=== PATIENT | female | born 1985 | race Caucasian/White ===

== ENCOUNTER 2020-06-30 00:46 | Emergency (ER) | payer BC, SELFPAY ==
[2020-06-30 00:50] VITALS: BP 135/73; PULSE 144; RESP 16; TEMP 37.3; O2SAT 100
[2020-06-30 01:22] LABS: Add Urine Microscopic? YES; Appearance Urine Turbid (Clear); Bilirubin Urine Negative (Negative); Blood Urine 2+ (Negative); Color Urine Yellow (Yellow); Glucose Urine UA Negative (Negative); Ketones Urine Negative (Negative); Leukocyte Esterase Ur 3+ LEU/UL (Negative); Mucus Urine Heavy /lpf; Nitrate Urine Positive (Negative); Protein Urine 3+ mg/dL (Negative); RBC Urine >75 /hpf (0-2); Specific Grav Ur 1.015 (1.001-1.035); Squamous Epithelial Cell Urine Many /hpf (Few); Urobilinogen Urine Negative mg/dL (<2.0); WBC Clumps Urine Present /HPF; WBC Urine >75 /hpf
[2020-06-30] MEDS: SODIUM CHLORIDE 0.9% IV 1,000 ML 999 ML IV CONT (02:52)
[2020-06-30] MEDS: KETOROLAC 30 MG/ML VIAL (*BKC) IV PUSH (02:53)
[2020-06-30] MEDS: ONDANSETRON INJ 4 MG/2 ML VIAL IV PUSH (02:53)
[2020-06-30 03:16] LABS: Basophils Absolute Auto 0.1 K/mm3 (0.0-0.1); Basophils Percent Auto 0.4 % (0.2-1.2); Eosinophils Percent Auto 0.3 % (0-4.4); Hematocrit 42.1 % (37.0-47.0); Immature Granulocyte Absolute 0.03 K/mm3 (0.00-0.031); Immature Granulocyte Percent A 0.2 % (0-0.5); Lymphocytes Absolute Auto 1.42 K/mm3 (0.9-3.2); Lymphocytes Percent Auto 10.6 % (18.3-44.2); Mean Corpuscular HGB Conc 33.3 g/dl (32-36); Mean Corpuscular Hemoglobin 28.8 pg (26-34); Mean Corpuscular Volume 86.6 fl (80-100); Mean Platelet Volume 11.7 fl (7.4-10.4); Monocytes Percent Auto 7.8 % (2.6-8.5); Neutrophils Absolute Auto 10.8 K/mm3 (1.3-6.7); Neutrophils Percent Auto 80.7 % (45.5-73.1); Platelet Count Result 227 k/mm3 (150-375); Red Blood Count 4.86 M/mm3 (4.2-5.4); Red Cell Distribution Width 12.2 % (11.5-14.5); White Blood Count 13.4 K/mm3 (4.5-10.0)
[2020-06-30 03:27] LABS: Lactic Acid Reflex 1.3 mmol/L (0.7-2.1)
--- NOTE | 2020-06-30 03:28 | ED.GENADULT ---
HPI - General Adult General Chief complaint: Urogenital-Female Stated complaint: UTI with back and side pain Time Seen by Provider: 06/30/20 01:08 History of Present Illness HPI narrative: Patient is a 34-year-old female who presents to the emergency department with chief complaint of dysuria. The patient states over the last several days she has had urinary frequency and urgency and states she is been urinating small amounts. The patient states that she has had pain in her flanks and reports that she is also had a low-grade fever at home. The patient states she had some nausea but no vomiting denies diarrhea. Patient states that she thought that she had a urinary infection but stated that it was not improving at home. Patient states she was concerned that she was getting a kidney infection reports that she is a recovering [employer] user Related Data Allergies Allergy/AdvReac Type Severity Reaction Status Date / Time acetaminophen AdvReac Other Verified 06/30/20 02:53 Review of Systems Review of Systems: Narrative: A 10 system review of systems was completed on the patient and is negative except for what is stated in the HPI. Nursing and ancillary documentation was reviewed. 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 Exam Narrative: Exam Narrative: GENERAL: Well-appearing, well-nourished, and in no acute distress. HEAD: Normocephalic, atraumatic. EYES: PERRLA and EOMI. ENT: Nares clear, no rhinorrhea or epistaxis. Mucous membranes moist. NECK: Supple. CHEST: Clear to auscultation. No respiratory distress. HEART: Regular rate and rhythm. No murmur heard. Normal peripheral pulses. ABDOMEN: Soft, nontender, nondistended, normal active bowel sounds. Mild tenderness in bilateral costovertebral angles EXTREMITIES: Normal range of motion. No edema. SKIN: Warm, dry, no rash. NEURO: No focal deficits. Alert and oriented x3. PSYCH: Normal mood and affect. Course Course Emergency Course: Patient was initially significantly tachycardic in the emergency department patient received IV fluids and pain control and the patient is doing much better with her heart rate is down to 109 patient was given a dose of Rocephin in the emergency department urine culture was obtained as well as blood cultures were obtained. Lactic acid was within normal limits. At this time is felt the patient could be managed successfully as an outpatient. Vital Signs Vital signs: Vital Signs Temperature 37.3 C 06/30/20 00:50 Pulse Rate 144 H 06/30/20 00:50 Respiratory Rate 16 06/30/20 00:50 Blood Pressure 135/73 06/30/20 00:50 Pulse Oximetry 100 06/30/20 00:50 Temperature 37.3 C 06/30/20 00:50 Pulse Rate 144 H 06/30/20 00:50 Respiratory Rate 16 06/30/20 00:50 Blood Pressure 135/73 06/30/20 00:50 Pulse Oximetry 100 06/30/20 00:50 Medical Decision Making Vital Signs Vital Signs: Vital Signs Temperature 37.3 C 06/30/20 00:50 Pulse Rate 144 H 06/30/20 00:50 Respiratory Rate 16 06/30/20 00:50 Blood Pressure 135/73 06/30/20 00:50 Pulse Oximetry 100 06/30/20 00:50 Temperature 37.3 C 06/30/20 00:50 Pulse Rate 144 H 06/30/20 00:50 Respiratory Rate 16 06/30/20 00:50 Blood Pressure 135/73 06/30/20 00:50 Pulse Oximetry 100 06/30/20 00:50 Lab Data Result diagrams: 06/30/20 02:49 06/30/20 02:49 Labs: Lab Results 06/30/20 06/30/20 06/30/20 Range/Units 01:03 02:49 02:49 WBC 13.4 H (4.5-10.0) K/mm3 RBC 4.86 (4.2-5.4) M/mm3 Hgb 14.0 (12.0-15.0) g/dL Hct
[2020-06-30 03:30] LABS: Alanine Aminotransferase 47 U/L (4-35); Albumin Level 4.3 g/dL (3.5-5.1); Alkaline Phosphatase 86 U/L (38-126); Anion Gap 6 mmol/L (8-16); Aspartate Amino Transferase 44 U/L (14-36); Bilirubin,Total 0.6 mg/dL (0.2-1.3); Blood Urea Nitrogen 9 mg/dL (7-17); Calcium 9.2 mg/dL (8.4-10.2); Carbon Dioxide 29 mmol/L (22-30); Chloride 102 mmol/L (98-107); Estimated CRCL calculation 116 ml/min; Estimated Glomerular Filt Rate > 60; Glucose 76 mg/dL (65-105); Potassium 3.6 mmol/L (3.4-5.0); Sodium 137 mmol/L (137-145)
[2020-06-30 05:01] VITALS: BP 100/54; PULSE 110; RESP 18; TEMP 37.2; O2SAT 97
== END 2020-06-30 04:40 | disposition home or self-care (01) ==
PROVIDERS: Emergency Provider Emergency Medicine
DX: N10 Acute pyelonephritis (principal); F17.200 Nicotine dependence, unspecified, uncomplicated
CPT/HCPCS: 36415; 80053; 81001; 81025; 83605; 85025; 87040; 87077; 87086; 87088; 87186; 96365; 96375; 99284; J0696; J1885; J2405; J7030

== ENCOUNTER 2020-10-14 17:40 | Emergency (ER) | payer BC, SELFPAY ==
[2020-10-14 18:11] VITALS: BP 117/69; PULSE 105; RESP 18; TEMP 36.3; O2SAT 100
[2020-10-14 19:35] VITALS: BP 110/74; PULSE 92; RESP 18; TEMP 36.8; O2SAT 100
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
[2020-10-14 20:48] LABS: Basophils Percent Auto 0.5 % (0.2-1.2); Eosinophils Absolute Auto 0.2 K/mm3 (0-0.3); Eosinophils Percent Auto 1.9 % (0-4.4); Hematocrit 44.3 % (37.0-47.0); Hemoglobin 14.6 g/dL (12.0-15.0); Immature Granulocyte Absolute 0.03 K/mm3 (0.00-0.031); Immature Granulocyte Percent A 0.4 % (0-0.5); Lymphocytes Absolute Auto 3.17 K/mm3 (0.9-3.2); Lymphocytes Percent Auto 38.6 % (18.3-44.2); Mean Corpuscular Hemoglobin 28.7 pg (26-34); Mean Platelet Volume 10.7 fl (7.4-10.4); Monocytes Absolute Auto 0.5 K/mm3 (0.1-0.6); Monocytes Percent Auto 6.1 % (2.6-8.5); Neutrophils Absolute Auto 4.3 K/mm3 (1.3-6.7); Neutrophils Percent Auto 52.5 % (45.5-73.1); Platelet Count Result 272 k/mm3 (150-375); Red Blood Count 5.09 M/mm3 (4.2-5.4); Red Cell Distribution Width 13.1 % (11.5-14.5); White Blood Count 8.2 K/mm3 (4.5-10.0)
[2020-10-14 21:00] LABS: Alanine Aminotransferase 52 U/L (4-35); Albumin Level 4.3 g/dL (3.5-5.1); Alkaline Phosphatase 146 U/L (38-126); Anion Gap 10 mmol/L (8-16); Aspartate Amino Transferase 45 U/L (14-36); Bilirubin,Total 0.4 mg/dL (0.2-1.3); Blood Urea Nitrogen 12 mg/dL (7-17); Calcium 9.7 mg/dL (8.4-10.2); Carbon Dioxide 27 mmol/L (22-30); Chloride 104 mmol/L (98-107); Estimated CRCL calculation 132 ml/min; Estimated Glomerular Filt Rate > 60; Glucose 86 mg/dL (65-105); Potassium 4.1 mmol/L (3.4-5.0); Sodium 141 mmol/L (137-145)
[2020-10-14 21:02] VITALS: BP 107/79; PULSE 82; RESP 14; O2SAT 100
== END 2020-10-14 21:05 | disposition home or self-care (01) ==
PROVIDERS: Emergency Provider Nurse Practitioner
DX: R20.0 Anesthesia of skin (principal); R20.2 Paresthesia of skin; Z87.820 Personal history of traumatic brain injury; F17.210 Nicotine dependence, cigarettes, uncomplicated
CPT/HCPCS: 36415; 80053; 85025; 99283

== ENCOUNTER 2020-10-17 23:17 | Emergency (ER) | payer BC, SELFPAY ==
--- NOTE | ~2020-10-17 | CT_ITS ---
EXAMINATION: CT lumbar spine [facility] EXAM DATE: 10/18/2020 01:57 INDICATION: Back pain, right leg numbness. TECHNIQUE: Spiral CT of the lumbar spine was performed without contrast. Axial, coronal and sagittal images lumbar spine were reviewed. The dose-length product (DLP) for this examination was 831.99 mG y-cm. The exposure was tailored according to patient size (auto mA exposure control), and iterative reconstruction (ASIR) was used as additional dose reduction technique. There is no prior study for comparison. FINDINGS: Mild to moderate disc disease T12-L1 and L1-2, mild at the other lumbar levels. There are no acute fractures identified. Mild lumbar dextrocurvature, scoliosis or positional. Punctate bilater al nephrolithiasis. The vertebral bodies are aligned in the AP dimension. There are no bony erosions identified. Level by level evaluation: T12-L1: Disc does not extend beyond the endplate margin. Facet arthropathy: None. Neural foraminal stenosis: No stenosis. Central canal stenosis: No stenosis. L1-L2: Disc does not extend beyond the endplate margin. Facet arthropathy: None. Neural foraminal stenosis: No stenosis. Central canal stenosis: No stenosis. L2-L3: Disc does not extend beyond the endplate margin. Facet arthropathy: Minimal. Neural foraminal stenosis: No stenosis. Central canal stenosis: No stenosis. L3-L4: There is a minimal diffuse disc bulge. Facet arthropathy: Minimal. Neural foraminal stenosis: No stenosis. Central canal stenosis: No stenosis. L4-L5: There is a mild diffuse disc bulge. Facet arthropathy: Mild. Neural foraminal stenosis: No stenosis. Central canal stenosis: No stenosis. L5-S1: There is a mild diffuse disc bulge. Facet arthropathy: Moderate left, mild right. Neural foraminal stenosis: Mild left. Central canal stenosis: No stenosis. IMPRESSION: 1. Mild lumbar spondylosis. Reviewed, dictated and finalized at location A. IMPRESSION: 1. Mild lumbar spondylosis.
--- NOTE | ~2020-10-17 | XR_ITS ---
EXAMINATION: XR ankle RT min 3V EXAM DATE: 10/18/2020 02:00 INDICATION: Right ankle pain with walking, numbness for 5 days. TECHNIQUE: Right ankle frontal, lateral and oblique projections obtained and reviewed. There is no p rior study for comparison. FINDINGS: There are no acute right ankle fractures or dislocations identified. There is no subcutane ous gas. The soft tissue is unremarkable. There are no radiopaque foreign bodies. IMPRESSION: 1. XR ankle RT min 3V exam without acute osseous findings. Reviewed, dictated and finalized at location A.
[2020-10-17 23:19] VITALS: BP 113/63; PULSE 108; RESP 16; TEMP 36.8; O2SAT 100
[2020-10-18] MEDS: KETOROLAC (*BKC) 60 MG/2 ML VIAL IM (01:46)
[2020-10-18] MEDS: HYDROcodone/acetaminophen (*CRX) 5-325 MG TABLET 1 TAB PO (01:47)
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
[2020-10-18 02:30] VITALS: BP 113/70; PULSE 84; RESP 18; O2SAT 100
== END 2020-10-18 04:00 | disposition home or self-care (01) ==
PROVIDERS: Emergency Provider General Practice
DX: M21.371 Foot drop, right foot (principal); Z87.820 Personal history of traumatic brain injury; F17.200 Nicotine dependence, unspecified, uncomplicated; M47.816 Spondylosis without myelopathy or radiculopathy, lumbar region
CPT/HCPCS: 29515; 72131; 73610; 96372; 99284; A9270; J1885